=== PATIENT | male | born 1995 | race Caucasian/White ===

== ENCOUNTER 2018-03-28 17:55 | Emergency (ER) | payer OTHER | END 2018-03-28 18:59 | disposition home or self-care (01) | LOC: M ED 17:55 | DX: Z46.89 Encounter for fitting and adjustment of other specified devices (principal); R20.0 Anesthesia of skin; S62.317A Displaced fracture of base of fifth metacarpal bone, left hand, initial encounter for closed fracture; X58.XXXA Exposure to other specified factors, initial encounter; Y92.89 Other specified places as the place of occurrence of the external cause | CPT/HCPCS: 99283 ==

== ENCOUNTER 2018-05-26 17:25 | Emergency (ER) | payer OTHER ==
[2018-05-26] MEDS: IBUPROFEN 800 MG TAB PO (17:57)
== END 2018-05-26 18:59 | disposition home or self-care (01) ==
LOC: M ED 17:25
DX: S90.32XA Contusion of left foot, initial encounter (principal); W22.09XA Striking against other stationary object, initial encounter; Y92.009 Unspecified place in unspecified non-institutional (private) residence as the place of occurrence of the external cause
CPT/HCPCS: 73630